=== PATIENT | female | born 1960 | race Caucasian/White ===

== ENCOUNTER 2023-09-03 13:27 | Emergency (ER) | payer SELFPAY ==
[~2023-09-03] VITALS: Ht 165.1 cm; Wt 77.1 kg
[2023-09-03 13:37] VITALS: BP 140/80; PULSE 80; RESP 18; TEMP 98; O2SAT 98
== END 2023-09-03 14:13 | disposition left against medical advice (07) ==
LOC: MED 13:27
DX: R10.9 Unspecified abdominal pain (principal); Z53.21 Procedure and treatment not carried out due to patient leaving prior to being seen by health care provider
CPT/HCPCS: 99281